=== PATIENT | female | born 1995 | race Caucasian/White ===

== ENCOUNTER 2016-06-28 02:47 | Emergency (ER) | payer BC ==
[~2016-06-28] VITALS: Ht 170.2 cm; Wt 66.7 kg
[2016-06-28 02:52] VITALS: TEMP 36.7; Ht 170.2 cm; Wt 66.7 kg
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
[2016-06-28 04:27] VITALS: BP 116/74; PULSE 78; O2SAT 98
--- NOTE | 2016-06-28 07:17 | DIAGNOSTIC IMAGING REPORT ---
CERVICAL SPINE CT CT DOSE: HISTORY: neck pain TECHNIQUE: Multiaxial CT images of the cervical spine were performed and reformatted in the sagittal and coronal plane without the use of contrast. COMPARISON: None. FINDINGS: No fractures. No subluxation. Prevertebral soft tissues and the C1-C2 interval are intact. No pneumothorax. Reversal of the normal lordotic curvature which is likely positional. IMPRESSION: No fractures within the cervical spine. Electronically signed by: Jason Peterson M.D. 06/28/2016 7:15 AM Dictated Date/Time: 06/28/2016 7:12 AM
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
== END 2016-06-28 04:28 | disposition home or self-care (01) ==
LOC: C.EDB 02:49
DX: S06.0X0A Concussion without loss of consciousness, initial encounter (principal); W22.8XXA Striking against or struck by other objects, initial encounter; Y92.013 Bedroom of single-family (private) house as the place of occurrence of the external cause